=== PATIENT | female | born 1990 | race Caucasian/White ===

== ENCOUNTER 2024-07-08 13:18 | Emergency (ER) | payer SELFPAY ==
[2024-07-08 13:30] VITALS: BP 166/111; PULSE 87; RESP 16; TEMP 36.6; O2SAT 99
--- NOTE | 2024-07-08 13:45 | ED_ITS ---
HPI - Wound/Laceration General Chief Complaint: Wound/Laceration Stated Complaint: Left Thumb Laceration Time Seen by Provider: 07/08/24 13:23 Source: patient Mode of arrival: ambulatory Limitations: no limitations History of Present Illness HPI narrative: Dariela is a 34-year-old female patient presenting to the clinic today with complaints of a laceration to her left thumb. She reports she cut her thumb last night within ninja knife around 7 p.m.. States that she took the Band-Aid off this morning and was still bleeding and is having difficulty getting the bleeding stopped. Tetanus is up-to-date per patient. Has multiple Band-Aids covering up wound Related Data Allergies Allergy/AdvReac Type Severity Reaction Status Date / Time nka Allergy Unknown Uncoded 10/19/02 12:59 NA Allergy Uncoded 08/10/08 12:34 Review of Systems Review of Systems: Pertinent positives per HPI. Patient denies any fever, chills, rash, headache, visual changes, dizziness, cough, runny nose, sore throat, shortness of breath, chest pain, palpitations, nausea, vomiting, diarrhea, constipation, abdominal pain, or any urinary issues. PMFSH Comments At the time of my signature, I reviewed and agree with the nursing past medical, surgical, social, and family history. There is no relevant family history pertinent to the patient complaint. Exam Narrative: General: Well-developed, well nourished, in no apparent distress Head: Normocephalic, atraumatic. Cardio: Regular rate and rhythm, s1 and s2 normal, no murmur appreciated. Resp: Clear to auscultation bilaterally, no rhonchi, rales, wheezing or rubs. Integumentary: [place], warm, and dry, complete skin avulsion to the left thumb with to superficial cuts-1 going horizontal and 1 going vertical. Area measuring approximately 1 cm x 1 cm. Course Course Emergency Course: Portions of this record may have been created with voice recognition software. Level of Care: Express Care Visit Vital Signs Vital signs: Vital Signs Temperature 36.6 C 07/08/24 13:30 Pulse Rate 87 07/08/24 13:30 Respiratory Rate 16 07/08/24 13:30 Blood Pressure 166/111 H 07/08/24 13:30 Pulse Oximetry 99 07/08/24 13:30 Oxygen Delivery Room Air 07/08/24 13:30 Temperature 36.6 C 07/08/24 13:30 Pulse Rate 87 07/08/24 13:30 Respiratory Rate 16 07/08/24 13:30 Blood Pressure 166/111 H 07/08/24 13:30 Pulse Oximetry 99 07/08/24 13:30 Oxygen Delivery Room Air 07/08/24 13:30 Vital signs reviewed MDM - Wound/Laceration MDM Narrative Medical decision making narrative: At the time of visit patient is resting comfortably on the exam table. Patient appears to be nontoxic. Plan: Patient has a complete skin avulsion to the left thumb-unable to repair. Bleeding is controlled. Wound was cleansed in the clinic today and sterile dressing was applied. Patient reporting tetanus is up-to-date. Supportive measures were discussed with the patient and they voiced understanding discharge instructions and agrees to treatment plan. Return precautions reviewed Differential Diagnosis Differential diagnosis: Likely laceration, abscess, abrasion and avulsion of skin Discharge Plan Discharge Clinical Impression: Avulsion of skin of left thumb Patient Disposition: Home, Self-Care Condition: Stable Instructions: Antibiotic Form, Skin Avulsion (ED) Additional Instructions: Leave bandage on for 24 hours then may remove and apply band aide covering as needed. Keep wound clean and dry Wash daily with soap and water and pat dry. May take Tylenol/Motrin as needed for pain Do not soak the wound in any dirty water Watch for signs and symptoms of infection- redness, streaking, swelling, purulent discharge, or increase in pain. Follow up with your PCP in 3-5 days for a wound check You have an elevated blood pressure in the clinic today and I recommend follow- up with primary care physician to have this reevaluated within the next week if symptoms persist. [place] [employer] guidelines state that normal blood pressure is 120/80 or less. Anything over 120/80 is considered elevated and should be monitored. You may need to decrease you salt intake and eat a heart healthy diet to help lower you blood pressure, other treatments would include decreasing stress, weight loss, stop caffeine, and quit smoking. Your primary care provider can determine whether you need to start antihypertensive medications. Untreated high blood pressure can cause dizziness, headaches, visual changes, blindness, kidney failure, stroke, heart attack Patient Language: Georgian Follow-up/Referrals: PHYSICIAN,[facility] PRESIDENT [Primary Care Provider] - Stand Alone Forms: Work/School Release IP Time of Disposition: 13:46 Quality NIHSS Nursing Documentation ED NIHSS nursing documentation: reviewed/agree
== END 2024-07-08 13:55 | disposition home or self-care (01) ==
PROVIDERS: Emergency Provider Nurse Practitioner Family
DX: S61.002A Unspecified open wound of left thumb without damage to nail, initial encounter (principal); W26.0XXA Contact with knife, initial encounter
CPT/HCPCS: 99212; G0463